=== PATIENT | female | born 1990 | race Caucasian/White ===

== ENCOUNTER 2023-11-07 17:11 | Emergency (ER) | payer OTHER, SELFPAY ==
[2023-11-07 17:14] VITALS: BP 110/63
[2023-11-07 17:15] VITALS: BP 110/63
[2023-11-07 17:20] LABS: % Basophils 0.9 % (0-2); % Eosinophils 3.3 % (0-6); % Immature Granulocytes 0.2 % (0-0.5); % Lymphocytes 41.3 % (20.5-51.1); % Monocytes 6.1 % (1.7-9.3); % Neutrophils 48.2 % (42.2-75.2); Absolute Basophils 0.1 10^3/uL (0-0.2); Absolute Eosinophils 0.2 10^3/uL (0-0.7); Absolute Lymphocytes 2.3 10^3/uL (1.2-3.4); Absolute Monocytes 0.3 10^3/uL (0.1-0.6); Absolute Neutrophils 2.6 10^3/uL (1.4-6.5); Hematocrit 35.8 % (37.0-47.0); Hemoglobin 12.4 g/dL (12.0-16.0); Mean Corp Hgb Conc. 34.6 g/dL (33.0-37.0); Mean Corpuscular Hgb 30.4 pg (27.0-31.0); Mean Corpuscular Volume 87.7 fL (81.0-99.0); Mean Platelet Volume 9.2 fL (7.4-10.4); Nucleated Red Blood Cells % 0 %; Platelet Count 294 10^3/uL (130-400); Red Blood Cell Count 4.08 10^6/uL (4.20-5.40); Red Cell Dist. Width 13.2 % (11.5-14.5); White Blood Cell Count 5.5 10^3/uL (4.8-10.8)
[2023-11-07 17:20] LABS: Glucose - Point of Care 87 mg/dl (70-99)
[2023-11-07 17:37] LABS: ALT (SGPT) 17 U/L (0-35); AST (SGOT) 21 U/L (14-36); Albumin 4.4 g/dl (3.5-5.0); Alkaline Phosphatase 42 U/L (38-126); Blood Urea Nitrogen 12 mg/dl (7-17); Calcium 9.5 mg/dl (8.4-10.2); Carbon Dioxide 23 mmol/L (22-30); Chloride 105 mmol/L (98-107); Glucose 84 mg/dl (70-99); Potassium 3.9 mmol/L (3.5-5.1); Sodium 139 mmol/L (135-145); Total Bilirubin 0.7 mg/dl (0.2-1.3); Total Protein 7.2 g/dl (6.3-8.2); eGFR > 60.00
[2023-11-07 17:45] LABS: Troponin I < 0.012 ng/ml
[2023-11-07 18:00] VITALS: BP 103/71
[2023-11-07 19:00] VITALS: BP 105/71
[2023-11-07 20:26] LABS: D-Dimer 0.96 ug/mlFEU (0.00-0.50)
[2023-11-07 21:54] VITALS: BP 102/67
[2023-11-07 22:00] VITALS: BP 105/66
--- NOTE | 2023-11-07 22:38 | ED.GENMED ---
History of Present Illness
General
Chief Complaint: Chest Pain
Source: patient
Exam Limitations: none
Time Seen by Provider: 11/07/23 18:11
Nursing documentation reviewed up to this point in time: agreed with
Travel History
Have you had any contact with someone who has COVID-19?: Yes
Comment: family, pt positive 10/22
Do you have any symptoms of coronavirus? Fever > 100 degrees, chills, cough, shortness of breath, sore throat, loss of taste or smell, muscle aches, or headache?: No
History of Present Illness
History of Present Illness:
33-year-old female with past medical history of recurrent syncope who presents to the emergency room for evaluation of chest pain. Patient reports that for the past few weeks she has had intermittent chest pain. She describes a substernal pressure
sensation that she gets almost every day for the past 2 weeks. She says it will last for variable amounts of time usually longer than a few minutes but less than a few hours. She says that today it seems to last for 2 to 3 hours. She says that
there is no clear trigger�it is not worse when she lays flat or at a particular time of the day, not worse with breathing or exertion. No particular relieving factor noted. She says that occasionally she will get some paresthesias in her
extremities when she has an episode. She says she does not have any associated shortness of breath, nausea, vomiting, diarrhea or any other issues. She does note that about a month ago she returned from a vacation to [place] and had COVID for a few
days but was minimally symptomatic. Today she went to urgent care to be evaluated for symptoms and while she was there she says she had one of her typical episodes of syncope (was not having chest pain at that time) and she was referred to the
emergency room to be evaluated.
Past History
Past History
ED Past Medical History: None
ED Past Surgical History: None
Social History
Tobacco: Non-smoker
Alcohol: None
Drug: None
Personal:
Living: with family
Employment: Employed
Family History
Family History: Other (Noncontributory)
Review of Systems
Review of Systems
All Other Systems: ROS reviewed and negative except as documented in HPI and ROS
Constitutional: Denies fever or chills
EENT: Denies sore throat or runny nose
Respiratory: Denies cough or trouble breathing
Cardiac: Reports chest pain and syncope; Denies diaphoresis or palpitations
ABD/GI: Denies abdominal pain, nausea, vomiting or diarrhea
: Denies flank pain
Musculoskeletal: Denies neck pain or back pain
Neurological: Reports other (Paresthesias); Denies dizzy or headache
Phy Exam
Physical Exam
Physical Exam:
General: Awake, alert, oriented x3; no acute distress
Head: Normocephalic, atraumatic
Eyes: Conjunctiva normal, sclera anicteric
Throat: Airway intact, handling secretions
Neck: Trachea midline, supple without meningismus
Lungs: Clear to auscultation bilaterally, no wheezing, rales, rhonchi
Heart: Regular rate and rhythm, no murmurs, gallops, or rubs
Abd: Soft, non distended, nontender
Neuro: Cranial nerves grossly intact, speech fluid
Skin: no rash
Extremities: No edema in extremities, equal pulses in all extremities
Scores
Heart Failure Risk
Heart Failure Risk Score: Not Applicable
Heart Score for Chest Pain Patients
STEMI patient?: No
History: Slightly or Non-Suspicious
ECG: Normal
Age: </= 45 years
Risk Factors: No Risk Factors
Troponin: </= Normal Limit
Heart Score for Chest Pain Patients: 0
Heart Score Risk: 2.5% MACE over next 6 weeks
PE Wells Score
Symptoms of DVT: No
No alternative diagnosis better explains the illness: No
Tachycardia with pulse > 100: No
Immobilization (>=3 days) or surgery within previous 4 weeks: No
Prior history of DVT or pulmonary embolism: No
Presence of hemoptysis: No
Presence of malignancy: No
Pulmonary Embolism Risk Score: 0
Probability of PE: Pt is low risk
Withdrawal Assessment of Alcohol
Withdrawal Assessment Completed?: Not applicable
Course
Orders/Labs/Results
Orders:
Orders
11/07/23 17:13
EKG [Electrocardiogram (*1)] Urgent
Reason for Study: Tachycardia
EKG- Treatment ONCE
11/07/23 17:14
Complete Blood Count/With Diff Urgent
Comprehensive Metabolic Panel Urgent
Troponin I Urgent
11/07/23 19:21
CR Chest - 2 Views Urgent
Comment:
Reason For Exam: chest pain
11/07/23 20:09
D-Dimer Urgent
11/07/23 21:15
CT Chest Pe Study Urgent
Comment:
Reason For Exam: chest pain, recent 9 hr flight, +dimer
Abnormal Lab Results
11/07/23 11/07/23
17:14 20:09
RBC 4.08 L 10^6/uL
(4.20-5.40)
Hct 35.8 L %
(37.0-47.0)
D-Dimer 0.96 H ug/mlFEU
(0.00-0.50)
11/07/23 17:14
11/07/23 17:14
Vital Signs
Initial and Last Documented VS:
Initial Vital Signs
Temp Pulse Resp BP Pulse Ox
36.6 C 66 18 110/63 100
11/07/23 17:14 11/07/23 17:14 11/07/23 17:14 11/07/23 17:14 11/07/23 17:14
Last Documented Vital Signs
Temp Pulse Resp BP Pulse Ox
36.6 C 55 17 105/71 98
11/07/23 17:14 11/07/23 19:45 11/07/23 19:45 11/07/23 19:00 11/07/23 20:15
MDM/Problems Addressed
Differential Diagnosis Includes:
GERD, pericarditis, costochondritis, ACS considered less likely, PE is a consideration but somewhat less likely based on clinical history; very low aortic dissection judgment no further workup for this diagnosis is indicated with patient currently
chest pain-free and normotensive with reassuring exam
MDM/Problems Addressed:
33-year-old female presents to the emergency room for evaluation of intermittent chest pressure for the past few weeks associated with some mild paresthesias. She does have a history of recurrent syncope and when she went to urgent care to be
evaluated for the symptoms after about a 2 to 3-hour episode of chest pain this morning she had one of her typical syncopal events and was referred to the emergency room for assessment. On arrival here she is chest pain-free and asymptomatic.
Vital signs are normal. EKG shows sinus rhythm with no acute ischemia, right bundle branch block, no AV block, normal QTc, no delta wave or signs of Brugada. Will plan to check labs including a CBC and a CMP. Will check a troponin. Will check
D-dimer given her recent trip to [place] although by history symptoms do not sound consistent with a PE. Will check a chest x-ray to rule out pneumonia or pneumothorax although considered less likely. Will reassess after the above.
Labs reviewed: CBC unremarkable, CMP no clinically significant abnormalities. Troponin undetectable and with patient having constant symptoms for hours this morning and now undetectable troponin this is sufficient to rule out acute CT. Chest x-ray
shows no acute pathology. Her D-dimer was marginally positive�will send for CTA to rule out PE.
CT chest negative for pulmonary embolism or any other acute pathology. Patient has remained chest pain-free with reassuring vitals throughout her 4+ hour ED stay. Low suspicion for emergent pathology at this point�I suspect it may be GERD or
esophagitis; pericarditis is a consideration as she did have COVID a few weeks ago but there is no pleuritic component, no EKG changes consistent with pericarditis, no effusion on CT chest and I suspect GI pathology is much more likely. Notably
while she was in the emergency room here she was eating [employer] fries. Will plan to discharge her on a PPI with Carafate. Advised her regarding dietary changes as well. Will have her follow-up with her primary care physician this week for
reassessment. She feels very comfortable with this plan. We did speak about return precautions and all questions were answered.
*Radiology
Radiology exam reviewed: preliminary read by ED provider and radiology read reviewed
*Pulse Oximetry
Patient hypoxic: no
*EKG
Interpreted by ED Provider?: Yes
Heart Rate: 64
Rate: normal
Rhythm: sinus
[place]: normal axis
Interval: normal interval
QRS Pattern: right bundle branch block
Ischemia: no ischemia
*Critical Care Note
Total Time (30-74mins, 75-104mins- exclusive of procedures): Not Applicable
Data Reviewed
Review of Other/Old Records Reveals: Labs and Records
Source: patient
ED Attending Note
-
Portions of this chart may have been created with voice recognition software.� Occasional wrong word or��sound alike� substitutions may have occurred due to the inherent limitations of voice recognition software.
Discharge Plan
Departure
Patient Disposition: Home (Routine Discharge)
Date of Disposition: 11/07/23
Time of Disposition: 21:59
Patient with high blood pressure during this ER visit?: No
Discharge Problem:
Chest pain
Instructions: Chest Pain PCP Follow Up
Prescriptions:
New
pantoprazole 40 mg tablet,delayed release (DR/EC)
40 mg PO DAILY Qty: 30 0RF
sucralfate [Carafate] 100 mg/mL suspension
10 ml PO ACHS Qty: 1000 0RF
No Action
Formula 1 TAB tablet
1 tab PO DAILY
valacyclovir 500 MG tablet
500 mg PO Daily
acetaminophen 325 mg Tablet
650 mg PO Q4HPRN PRN (Reason: mild pain) Qty: 0 0RF
ibuprofen 600 mg Tablet
600 mg PO Q6HPRN PRN (Reason: cramps) Qty: 0 0RF
Referrals:
Jimbo Farah PA-C [Family Provider] - Follow up in 5-7 days
Activity Restrictions/Additional Instructions:
Thank you for visiting the Emergency Department at [facility].
1. Please schedule a follow up appointment as directed. Call first thing tomorrow morning to make an appointment.
2. If indicated, please take your medications as instructed and indicated on discharge paperwork.
3. If any of your symptoms do not improve, or persist, or become more severe within 6-12 hours, please return to the emergency department for further care.
4. Please return to the emergency department if you develop a headache, neck pain/stiffness, fever greater than 100.4F, chest pain, shortness of breath, persistent nausea, vomiting, slurred speech, difficulty walking, numbness/tingling, weakness,
signs of infection or any other symptoms that are worrisome to you.
Please call [phone] if you have any questions.
Interventions
Interventions:
*Risk Screen - Suicide Last Done: 11/07/23 17:22
*General Assessment Last Done: 11/07/23 17:22
*Neglect/Abuse Screening Last Done: 11/07/23 17:22
ED- Fall Risk Assessment Last Done: 11/07/23 18:00
*ED COVID-19 Vaccine History Last Done: 11/07/23 17:24
ED- Cardiac Assessment Last Done: 11/07/23 18:00
Discharge Date and Time
Print Language: GREENLANDIC
== END 2023-11-07 22:52 | disposition home or self-care (01) ==
LOC: EMR 17:11
PROVIDERS: EMERGENCY PHYSICIAN Emergency Medicine; FAMILY PHYSICIAN Physician Assistant Medical
DX: R07.89 Other chest pain (principal)
CPT/HCPCS: 99285; 71046; 71275; 80053; 82962; 84484; 85025; 85379; 93005; Q9967

== ENCOUNTER 2025-01-10 20:00 | Emergency (ER) | payer OTHER, SELFPAY ==
[2025-01-10 20:01] VITALS: BP 112/80
[2025-01-10 21:47] LABS: Urine Character Clear (Clear)
[2025-01-10 21:49] LABS: HCG, Urine Qualitative Screen Negative
[2025-01-10 21:52] LABS: Urine Squamous Cell >30 /LPF (Few)
[2025-01-10 21:53] LABS: Urine White Cell 0-2 /HPF (0-5)
--- NOTE | 2025-01-10 21:58 | ED.GENMED ---
History of Present Illness
General
Chief Complaint: Abnormal Lab Value
Source: patient
Time Seen by Provider: 01/10/25 20:44
History of Present Illness
History of Present Illness:
34-year-old female presenting to the emergency department for evaluation after she had a throat culture done by her primary care doctor around 1 week ago, culture came back today positive for staph and was given a prescription for Cipro. Patient
states that earlier around 1 month ago she did have strep throat and was treated with a course of amoxicillin and reports that she did feel better but intermittently would still have discomfort in her throat which is why the new culture had been
done. Patient states the reason why she ultimately came to the ER was she has been experiencing some pain to her left lower back and having some vaginal discomfort and wanted to make sure that the staff in her throat laded to the back and vaginal
discomfort. She denies any fevers, chills, rigors, urinary symptoms or bowel changes. Patient states that she is sexually active only with her and states minimal concern for any STI but would appreciate a test being done. Patient notes
that as far as her back pain goes the pain seems to be worse with movements specifically when she goes to lay flat or with lateral bend towards the left. No red flag symptoms for back pain. No other concerns presently.
Past History
Past History
ED Past Medical History: Psychiatric
ED Past Surgical History:
Social History
Tobacco: Non-smoker
Alcohol: None
Drug: None
Personal:
Living: with family
Employment: Employed
Family History
Family History: Other (Noncontributory)
Review of Systems
Review of Systems
All Other Systems: ROS reviewed and negative except as documented in HPI and ROS
Phy Exam
Physical Exam
Physical Exam:
GENERAL: Alert , in no apparent distress
EYE: clear conjunctiva b/l
HEAD: NCAT
ENT: o/p clr, mmm.
ABDOMEN: Soft, without focal tenderness, no r/g, no cvat
Pelvic: Chaperoned by ED OSWALD Shoemaker: No external lesions noted, no vaginal discharge, no cervical motion tenderness
BACK: There is mild reproducible left paralumbar tenderness extending slightly into the lower thoracic region as well, no rashes
NEUROLOGICAL: Alert and oriented
SKIN: Warm and dry, skin intact.
MUSCULOSKELETAL: No edema, well perfused.
PSYCH: Normal and appropriate interaction.
Scores
Heart Failure Risk
Heart Failure Risk Score: Not Applicable
Heart Score for Chest Pain Patients
STEMI patient?: Not applicable
Withdrawal Assessment of Alcohol
Withdrawal Assessment Completed?: Not applicable
Course
Orders/Labs/Results
Orders:
Orders
01/10/25 21:30
CR Lumbar Spine Comp Min 4 Vw* Urgent
Comment:
Reason For Exam: left lower back pain
01/10/25 21:31
Test Result ONCE
01/10/25 21:37
, Urine Qualitative Screen [HCG, Urine Qualitative Screen] Urgent
Date Specimen was Collected: 01/10/25
Time Specimen was Collected: 21:34
Urinalysis Reflex To Culture Urgent
Date Specimen was Collected: 01/10/25
Time Specimen was Collected: 21:34
Urine Microscopic Reflex Cult Urgent
Chlamydia/GC by PCR Urgent
ABRAHAM Source: Urine
Specimen Description:
Source:: URINE
Date Specimen was Collected: 01/10/25
Time Specimen was Collected: 21:34
Urine Culture Urgent
ABRAHAM Source: U
Specimen Description:
Date Specimen was Collected: 01/10/25
Time Specimen was Collected: 21:34
Abnormal Lab Results
01/10/25
21:37
Ur Occult Blood Reflex 1+ A
(Negative)
Leukocyte Esterase Rfl 3+ A
(Negative)
Urine RBC 3-6 A /HPF
(0-2)
Urine Bacteria (Reflex) Few A
(Negative)
Vital Signs
Initial and Last Documented VS:
Initial Vital Signs
Temp Pulse Resp BP Pulse Ox
99.1 F 83 18 112/80 98
01/10/25 20:01 01/10/25 20:01 01/10/25 20:01 01/10/25 20:01 01/10/25 20:01
Last Documented Vital Signs
Temp Pulse Resp BP Pulse Ox
99.1 F 83 18 112/80 98
01/10/25 20:01 01/10/25 20:01 01/10/25 20:01 01/10/25 20:01 01/10/25 21:58
MDM/Problems Addressed
Differential Diagnosis Includes:
Musculoskeletal back pain
Disc herniation/nerve impingement
Spinal stenosis
Renal/ureteral colic/kidney stone
Cystitis
Pyelonephritis
/ complication
I did consider infectious etiology such as epidural abscess/psoas muscle abscess/osteomyelitis/discitis however given lack of infectious symptoms less concern for this
No concern for acute neurologic complication given lack of symptoms
MDM/Problems Addressed:
34-year-old female presenting to the ER for evaluation with concern for possible infection given her recent staph culture from a throat swab as well as back pain and pelvic based off of her exam I am most suspicious that patient likely has
musculoskeletal back pain. Unclear significance of the staph culture given patient is asymptomatic unclear as to if she even needs to be on antibiotics. Will defer her to following up with primary care who ordered the antibiotics at this time.
Pelvic exam reassuring. Will check urine, urine test and x-ray. Anticipate discharge home and continued outpatient follow-up, NSAIDs/Tylenol and topical agents as needed for pain.
*Radiology
Radiology exam reviewed: preliminary read by ED provider (No fracture, normal alignment)
*Pulse Oximetry
SaO2: 98
Oxygen Mode of Delivery: Room air
Patient hypoxic: no
*Critical Care Note
Total Time (30-74mins, 75-104mins- exclusive of procedures): Not Applicable
Patient Management
Escalation/DeEscalation of care consider admission/obs:
X-ray unremarkable. Urine culture sent. Patient stable for discharge home.
ED Attending Note
-
Portions of this chart may have been created with voice recognition software.� Occasional wrong word or��sound alike� substitutions may have occurred due to the inherent limitations of voice recognition software.
Discharge Plan
Departure
Patient Disposition: Home (Routine Discharge)
Date of Disposition: 01/10/25
Time of Disposition: 21:58
Patient with high blood pressure during this ER visit?: No
Discharge Problem:
Dorsalgia
Instructions: Back Pain
Prescriptions:
No Action
Formula 1 TAB tablet
1 tab PO DAILY
valacyclovir 500 MG tablet
500 mg PO Daily
acetaminophen 325 mg Tablet
650 mg PO Q4HPRN PRN (Reason: mild pain) Qty: 0 0RF
ibuprofen 600 mg Tablet
600 mg PO Q6HPRN PRN (Reason: cramps) Qty: 0 0RF
pantoprazole 40 mg tablet,delayed release (DR/EC)
40 mg PO DAILY Qty: 30 0RF
sucralfate [Carafate] 100 mg/mL suspension
10 ml PO ACHS Qty: 1000 0RF
Referrals:
Tammy Ccaeres DO [Family Provider, Family Practice]
Interventions
Interventions:
*Risk Screen - Suicide Last Done: 01/10/25 20:01
*General Assessment Last Done: 01/10/25 20:01
*Neglect/Abuse Screening Last Done: 01/10/25 20:01
*ED- Fall Risk Assessment Last Done: 01/10/25 22:02
*ED COVID-19 Vaccine History Last Done: 01/10/25 22:02
*Nursing Disposition Last Done: 01/10/25 22:02
Discharge Date and Time
Discharge Date/Time: 01/10/25 22:03
Print Language: GERMAN
== END 2025-01-10 22:03 | disposition home or self-care (01) ==
LOC: EMR 20:00
PROVIDERS: Physician Assistant Medical; EMERGENCY PHYSICIAN Emergency Medicine; FAMILY PHYSICIAN Family Medicine
DX: M54.9 Dorsalgia, unspecified (principal)
CPT/HCPCS: 99283; 72110; 81003; 81015; 81025; 87086; 87491; 87591